=== PATIENT | male | born 1995 | race Caucasian/White ===

== ENCOUNTER → 2017-05-15 | Outpatient (REF) | payer OTHER ==
[2017-05-15 22:19] LABS: CHLAMYDIA DNA AMPLIFICATION NEGATIVE (NEGATIVE); GC DNA AMPLIFICATION NEGATIVE (NEGATIVE)
== END ==
LOC: M SFHCLERA 18:37
DX: Z20.2 Contact with and (suspected) exposure to infections with a predominantly sexual mode of transmission (principal)
CPT/HCPCS: 87591

== ENCOUNTER → 2017-06-08 | Outpatient (REF) | payer OTHER | LOC: M SFHCLERA 16:59 | DX: J02.9 Acute pharyngitis, unspecified (principal) ==

== ENCOUNTER → 2022-03-31 | Outpatient (REF) | payer OTHER | LOC: M WUC 16:05 | PROVIDERS: ATTEND Student in an Organized Health Care Education/Training Program | DX: J02.9 Acute pharyngitis, unspecified (principal) ==